=== PATIENT | male | born 2005 | race Two or more races ===

== ENCOUNTER 2025-09-01 12:36 | Emergency (ER) | payer MEDICAID, OTHER ==
[~2025-09-01] VITALS: Ht 175.3 cm; Wt 75.4 kg
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
--- NOTE | 2025-09-01 13:39 | DVH ---
CLINICAL INDICATION: fall TECHNIQUE: XY L SHOULDER 2+ VIEW XRAY Comparison: None FINDINGS/IMPRESSION: : Mildly displaced mid left clavicle fracture with apex superior angulation at the level of the fracture. Soft tissues are unremarkable. Left acromioclavicular and glenohumeral joints are intact. Visualized portions of the lungs are clear.
--- NOTE | 2025-09-01 13:41 | DVH ---
CLINICAL INDICATION: fall TECHNIQUE: XY L CLAVICLE COMPLETE XRAY Comparison: XY L SHOULDER 2+ VIEW XRAY on DOS: 09/01/25 FINDINGS/IMPRESSION: : Mildly displaced mid left clavicle fracture with apex superior angulation. Soft tissues are unremarkable. Visualized portions of the lungs are clear.
[2025-09-01] MEDS ORDERED: IBUP1TAB5 PO (13:58)
[2025-09-01 14:07] VITALS: BP 132/78; PULSE 78; RESP 16; TEMP 98.4; O2SAT 97
== END 2025-09-01 14:10 | disposition home or self-care (01) ==
LOC: ER 12:36
DX: S42.022A Displaced fracture of shaft of left clavicle, initial encounter for closed fracture (principal); S46.912A Strain of unspecified muscle, fascia and tendon at shoulder and upper arm level, left arm, initial encounter; M25.512 Pain in left shoulder; F12.90 Cannabis use, unspecified, uncomplicated; F10.90 Alcohol use, unspecified, uncomplicated; F17.210 Nicotine dependence, cigarettes, uncomplicated; V86.56XA Driver of dirt bike or motor/cross bike injured in nontraffic accident, initial encounter; Y93.89 Activity, other specified; Y92.89 Other specified places as the place of occurrence of the external cause; Y99.8 Other external cause status
CPT/HCPCS: 29105; 73000; 73030